=== PATIENT | female | born 1965 | race Caucasian/White ===

== ENCOUNTER 2016-06-30 08:20 | Day surgery (SDC) | payer BC ==
[2016-06-29 08:16] LABS: HEMATOCRIT 38.2 % (36.0-48.0); HEMOGLOBIN 13.3 g/dL (12.0-16.0)
[2016-06-29 08:38] LABS: BUN (BLOOD UREA NITROGEN) 17 MG/DL (6-23); CALCIUM, SERUM 8.6 MG/DL (8.5-10.4); CHLORIDE, SERUM 100 MMOL/L (96-112); CO2 (CARBON DIOXIDE) 32 MMOL/L (24-34); CREATININE 0.86 MG/DL (0.55-1.02); GFR AFRICAN AMERICAN 89 ML/MIN (>=60); GFR NON AFRICAN AMERICAN 77 ML/MIN (>=60); GLUCOSE, SERUM 176 MG/DL (60-99); POTASSIUM, SERUM 3.4 MMOL/L (3.5-5.3); SODIUM, SERUM 139 MMOL/L (135-148)
--- NOTE | ~2016-06-30 | OP ---
Record Of Operation [facility] [address] [place]. [address] NAME: JONH ORDONEZ : 61 STATUS : [place] [facility] [place]#: [id number] AGE: 51 ADM/REG DATE : 06/30/16 MR#: [id number] REPORT SERV DATE: 06/30/16 DICTATED BY: ARIANNA WARD DATE: 06/30/16 REPORT STATUS : Draft TRANSCRIBED BY: MARIANO DATE: 06/30/16 DATE OF PROCEDURE: 06/30/2016 PREOPERATIVE DIAGNOSIS: Left carpal tunnel syndrome. PROCEDURE: Left carpal tunnel release. PROCESSOR HELPER: Grady Watson. ANESTHESIA: Local MAC. ESTIMATED BLOOD LOSS: None. COMPLICATIONS: None. DISPOSITION: The patient tolerated the procedure well and was brought to the recovery room in stable condition. PROCEDURE NOTE: The patient was brought to the operating room and placed in supine position. After IV sedation was given, a pneumatic tourniquet was placed around the left proximal arm and a surgical timeout was performed, all were in agreement, and the left palm was then prepped and then a local block using 5 mL of 1% lidocaine plain and 5 mL of 0.5% Marcaine plain was injected in and about the skin overlying the carpal tunnel region. Afterwards, the left upper extremity distal to the tourniquet was prepped and draped in usual sterile manner. An Esmarch was used to exsanguinate the extremity and tourniquet was inflated. A 15 blade scalpel was used to make a 3-4 cm semicircular incision incorporating a portion of the thenar crease. After the skin was incised, the palmar fascia was identified and incised along the length of its fibers to reveal the underlying transverse carpal ligament. The entire transverse carpal ligament from its most proximal to its most distal border was then incised just radial to the hook of the hamate. In doing so, the median nerve and the rest of the contents of the carpal tunnel were decompressed and the wound was irrigated, and skin was closed with deep running Monocryl suture. Steri-Strips and sterile dressing were applied. Tourniquet was released, and the patient was taken out of IV sedation and brought to recovery room in stable condition. JONATAN/MARIANO Arianna Ward M.D. / [id number] CC: Record Of Operation [address] [place]. [address] NAME: JONH ORDONEZ : 61 STATUS : REG [facility] [place] PAT#: [id number] AGE: 51 ADM/REG DATE : 06/30/16 MR#: [id number] REPORT SERV DATE: 06/30/16 DICTATED BY: ARIANNA WARD DATE: 06/30/16 REPORT STATUS : Draft TRANSCRIBED BY: MODL DATE: 06/30/16 Ernesto Rosas M.D.
[~2016-06-30 08:20] MED LIST: ACTOS30 PO; ASAB PO; EYE GTT; HYDROCHLOROT12.5 MG PO; IMDUR30 PO; LANTUS SC; LEVOTHYROXIN175 MCG PO; LIPITOR80 MG PO; LOP100 PO; LYRICA75 PO; METOPROLOL PO; MICRO-K10 MEQ PO; NASONEX NAS; NITROSTAT0.4 MG SL; NORCO1 TA1 PO; NORV5 PO; NOVOLOG SC; NOVOPEN SC; PLAVIX PO; PRILOSEC40 MG PO; PRINZIDE1 TA1 PO; RAN500 PO; ROCALTROL0.5 MCG PO; SINGULAIR5 PO; TOUJEO; TRAZODONE150 MG PO; TRESIBA FL100 UNIT/1 SC; TRESIBA SC; TUMSROLL PO; ZADITOR0.025 % OPH; ZESTORETIC PO; [UNRECOGNIZED DRUG - REMARK] OPH
[2016-07-01] MEDS ORDERED: SYNTHROID200 MCG PO (13:02)
== END 2016-06-30 23:59 | disposition home or self-care (01) ==
LOC: MSC 08:20
PROVIDERS: Orthopaedic Surgery Hand Surgery; Specialist
PROC: 01N50ZZ Release Median Nerve, Open Approach (ICD-10-PCS; principal; 2016-06-30 09:45)
DX: G56.02 Carpal tunnel syndrome, left upper limb (principal); E11.9 Type 2 diabetes mellitus without complications; I10 Essential (primary) hypertension; K21.9 Gastro-esophageal reflux disease without esophagitis; I25.10 Atherosclerotic heart disease of native coronary artery without angina pectoris; I25.2 Old myocardial infarction; E66.01 Morbid (severe) obesity due to excess calories; K58.9 Irritable bowel syndrome, unspecified; E89.0 Postprocedural hypothyroidism; E78.00 Pure hypercholesterolemia, unspecified; Z85.3 Personal history of malignant neoplasm of breast; Z95.5 Presence of coronary angioplasty implant and graft; Z68.38 Body mass index [BMI] 38.0-38.9, adult; Z88.3 Allergy status to other anti-infective agents; Z90.710 Acquired absence of both cervix and uterus; Z98.51 Tubal ligation status; Z90.49 Acquired absence of other specified parts of digestive tract; Z98.890 Other specified postprocedural states
CPT/HCPCS: 80048; 82962; 85014; 85018; A9270-GY; J0690; J2250; J2405; J3010

== ENCOUNTER 2016-07-09 08:43 | Day surgery (SDC) | payer BC ==
--- NOTE | ~2016-07-09 | OP ---
Record Of Operation [facility] [address] [place]. [address] NAME: JONH ORDONEZ : 61 STATUS : REG [facility]#: [id number] AGE: 51 ADM/REG DATE : 07/09/16 MR#: [id number] REPORT SERV DATE: 07/09/16 DICTATED BY: ARIANNA WARD DATE: 07/09/16 REPORT STATUS : Draft TRANSCRIBED BY: MARIANO DATE: 07/09/16 DATE OF PROCEDURE: 07/09/2016 PREOPERATIVE DIAGNOSIS: Right carpal tunnel syndrome. POSTOPERATIVE DIAGNOSIS: Right carpal tunnel syndrome. PROCEDURE: Right carpal tunnel release. OPERATOR SPECIALIST COMMUNICATIONS: Erica Castillo. ANESTHESIA: Local MAC. ESTIMATED BLOOD LOSS: 1 mL. COMPLICATIONS: None. DISPOSITION: The patient tolerated the procedure well and was brought to the recovery room in stable condition. PROCEDURE NOTE: The patient was brought to the operating room and placed in supine position. After IV sedation was given and pneumatic tourniquet was placed around the right proximal arm and a surgical timeout was performed, all were in agreement. The skin overlying the carpal tunnel was then injected with 5 mL of 1% lidocaine plain and 5 mL of 0.5% Marcaine plain. In doing so, this provided adequate local block. The right upper extremity distal to the tourniquet was prepped and draped in usual sterile manner. Esmarch was used to exsanguinate the extremity and tourniquet was inflated. Carpal tunnel release was carried out by taking a 15-blade scalpel making a 3 to 4 cm longitudinal incision starting at the volar wrist crease and directed distally. The incision incorporated a portion of the thenar crease and after the skin was incised, the palmar fascia was identified, incised along the length of its fibers to reveal the underlying transverse carpal ligament. The entire transverse carpal ligament from its most proximal to its most distal border was incised just radial to the hook of the hamate, and after doing so, the median nerve and the rest of the carpal tunnel contents were noted to be decompressed. The wound was irrigated and skin was closed with deep and running 4-0 Monocryl suture. Steri-Strips and sterile dressing were applied. Tourniquet was released, and the patient was taken out of IV sedation and brought to recovery room in stable condition. JONATAN/MARIANO Arianna Ward M.D. Record Of Operation [facility] [address] [place] [address] NAME: JONH ORDONEZ : 61 STATUS : REG [facility] [place] PAT#: [id number] AGE: 51 ADM/REG DATE : 07/09/16 MR#: [id number] REPORT SERV DATE: 07/09/16 DICTATED BY: ARIANNA WARD DATE: 07/09/16 REPORT STATUS : Draft TRANSCRIBED BY: MARIANO DATE: 07/09/16 / [id number] CC: Ernesto Rosas M.D.
[~2016-07-09 08:43] MED LIST changes: +SYNTHROID200 MCG PO
== END 2016-07-09 23:59 | disposition home or self-care (01) ==
LOC: MSC 08:43
PROVIDERS: Orthopaedic Surgery Hand Surgery
PROC: 01N50ZZ Release Median Nerve, Open Approach (ICD-10-PCS; principal; 2016-07-09 10:15)
DX: G56.01 Carpal tunnel syndrome, right upper limb (principal); E66.01 Morbid (severe) obesity due to excess calories; I10 Essential (primary) hypertension; I25.10 Atherosclerotic heart disease of native coronary artery without angina pectoris; K21.9 Gastro-esophageal reflux disease without esophagitis; E11.9 Type 2 diabetes mellitus without complications; Z68.38 Body mass index [BMI] 38.0-38.9, adult; E03.9 Hypothyroidism, unspecified; Z79.899 Other long term (current) drug therapy; Z88.8 Allergy status to other drugs, medicaments and biological substances
CPT/HCPCS: 82962; A9270-GY; J0690; J2250; J2405; J3010